=== PATIENT | female | born 1990 | race Hispanic/Latino ===

== ENCOUNTER 2018-07-03 07:43 | Emergency (ER) | payer OTHER ==
[2018-07-03 07:54] VITALS: BMI 18.3
[2018-07-03] MEDS ORDERED: Sodium Chloride 0.9% 1,000 ML IV STA (07:54)
--- NOTE | 2018-07-03 08:00 | ED PDOC ---
HPI: Female Pain Additional Complaint(s): 28 yo female patient with PMH of kidney stone present to the ED c/o R flank pain since last night. Patient states had passed stone last year and symptoms now are pretty similar to previous episode. She states pain in R flank, 5/10, radiated to R groin, have not taking pain meds at this time. Otherwise she denies fever, nausea, vomiting, dysuria, frequency, hematuria, no changes in BM. <Liseth Pierson - Last Filed: 07/03/18 11:48> <Kain Shi - Last Filed: 07/03/18 11:57> Time Seen by Provider: 07/03/18 07:53 Supervising Attending Note - Supervising Attending Note The Documented history was done by the: Physician Abrasive Worker The documented physical exam was done by the: Physician Abrasive Worker The documented procedures were done by the: Physician Abrasive Worker - Attestation: I have personally seen and examined this patient.: Yes I have fully participated in the care of the patient.: Yes I have reviewed all pertinent clinical information, including history, physical exam and plan: Yes - Notes: Notes:: Flank pain. Feels like her kidney stone. <Kain Shi - Last Filed: 07/03/18 11:57> Past Medical History - Medical History PMH: No Chronic Diseases - Surgical History Surgical History: No Surg Hx - Family History Family History: States: No Known Family Hx - Social History Current smoker - smoking cessation education provided: No Ex-Smoker (has not smoked in the last 12 months): No Alcohol: None Drugs: Denies <Liseth Pierson - Last Filed: 07/03/18 11:48> Vital Signs: Last Vital Signs Temp 98.7 F 07/03/18 08:00 Pulse 92 H 07/03/18 08:00 Resp 18 07/03/18 08:00 BP 132/86 07/03/18 08:00 Pulse Ox 100 07/03/18 08:00 <Kain Shi - Last Filed: 07/03/18 11:57> - Home Medications Home Medications: Ambulatory Orders Medication Instructions Recorded Ibuprofen [Motrin] 600 mg PO TID 7 Days tab 07/03/18 - Allergies Allergies/Adverse Reactions: Allergies Allergy/AdvReac Type Severity Reaction Status Date / Time midazolam [From Versed] AdvReac Intermediate COUGH Verified 07/03/18 08:11 Physical Exam - Reviewed Vital Signs Reviewed: Yes - Physical Exam Appears: Positive for: No Acute Distress Head Exam: Positive for: NORMAL INSPECTION Neck: Positive for: Supple Cardiovascular/Chest: Positive for: Regular Rate, Rhythm. Negative for: Tachycardia Respiratory: Positive for: Normal Breath Sounds. Negative for: Rales, Rhonchi, Wheezing Gastrointestinal/Abdominal: Positive for: Bowel Sounds, Soft, Tenderness (R lower quadrant). Negative for: Distended Back: Positive for: R CVA Tenderness. Negative for: L CVA Tenderness Extremity: Negative for: Pedal Edema Neurologic/Psych: Positive for: Alert, food and nutrition supervisor II-XII, Oriented <Liseth Pierson - Last Filed: 07/03/18 11:48> - Physical Exam Cardiovascular/Chest: Positive for: Regular Rate, Rhythm Respiratory: Positive for: Normal Breath Sounds Gastrointestinal/Abdominal: Positive for: Soft, Tenderness <Kain Shi - Last Filed: 07/03/18 11:57> - Laboratory Results Result Diagrams: 07/03/18 08:20 07/03/18 08:20 <Liseth Pierson - Last Filed: 07/03/18 11:48> - Laboratory Results Result Diagrams: 07/03/18 08:20 07/03/18 08:20 - Progress ED Course And Treament: 1157: Stable. AAOx3. Pain free. Tolerated PO. FU with pcp. <Kain Shi - Last Filed: 07/03/18 11:57> Medical Decision Making Medical Decision Makin yo female pt presenting with R flank pain, r/o Kidney stone. - IV fluids - CBC, CMP - UA - Abdominal CT 9:09 Reeval: CBC wnl, no leukocytosis, CMP wnl Patient prefers wait to CT results before take any IV pain meds 1135: CT negative for stones or obstructive uropathy. Patient stable for discharge <Liseth Pierson - Last Filed: 07/03/18 11:48> Disposition - Patient ED Disposition Is Patient to be Admitted: No - Disposition Disposition: Routine/Home Disposition Time: 11:51 <Liseth Pierson - Last Filed: 07/03/18 11:48> <Kain Shi - Last Filed: 07/03/18 11:57> - Clinical Impression Clinical Impression: Mesenteric adenitis - Disposition Referrals: [facility] [place] [Outside] Condition: STABLE Additional Instructions: Return if not better in 3 days. Prescriptions: Ibuprofen [Motrin] 600 mg PO TID 7 Days tab Instructions: Mesenteric Lymphadenitis (DC) Forms: [facility] ([place]), [facility] ED School/Work Excuse
[2018-07-03 08:09] VITALS: RESP 18; O2SAT 100
[2018-07-03 08:46] LABS: BASO % 0.4 % (0.0-2.0); EOS # 0.3 K/uL (0.0-0.7); EOS % 3.8 % (0.0-4.0); HEMOGLOBIN 14.5 g/dL (12.0-16.0); LYMPH # 2.2 K/uL (1.0-4.3); LYMPH % 32.3 % (20.0-40.0); MEAN CELL VOLUME 93.8 fl (81.0-99.0); MEAN CORPUSCULAR HGB CONC 34.2 g/dL (33.0-37.0); MONO # 0.4 K/uL (0.0-0.8); MONO % 6.4 % (0.0-10.0); NEUT # 3.9 K/uL (1.8-7.0); NEUT % 57.1 % (50.0-75.0); NRBC % 0.1 % (0.0-0.0); RBC 4.51 Mil/uL (3.80-5.20); RED CELL DISTRIBUTION WIDTH 11.9 % (11.5-14.5); WHITE BLOOD COUNT 6.8 K/uL (4.8-10.8)
[2018-07-03 08:56] LABS: ALB/GLOB RATIO 1.3 (1.0-2.1); ALBUMIN 5.1 g/dL (3.5-5.0); ALT/SGPT 35 U/L (9-52); AST/SGOT 37 U/L (14-36); BLOOD UREA NITROGEN 8 mg/dl (7-17); CALCIUM 10.1 mg/dL (8.4-10.2); GFR NON-AFRICAN AMERICAN > 60
--- NOTE | 2018-07-03 11:27 | CT ---
Date of service: 07/03/2018 PROCEDURE: CT Abdomen and Pelvis without intravenous contrast HISTORY: R/O stone COMPARISON: Not available TECHNIQUE: Without contrast.. Contrast dose: 0 Radiation dose: Total exam DLP = 346.14 mGy-cm. This CT exam was performed using one or more of the following dose reduction techniques: Automated exposure control, adjustment of the mA and/or kV according to patient size, and/or use of iterative reconstruction technique. FINDINGS: LOWER THORAX: Unremarkable. LIVER: Unremarkable. No gross lesion or ductal dilatation. GALLBLADDER AND BILE DUCTS: Unremarkable. PANCREAS: Unremarkable. No gross lesion or ductal dilatation. SPLEEN: Unremarkable. ADRENALS: Unremarkable. No mass. KIDNEYS AND URETERS: Unremarkable. No hydronephrosis. No solid mass. VASCULATURE: Unremarkable. No aortic aneurysm. No aortic atherosclerotic calcification or mural plaque present. BOWEL: Unremarkable. No obstruction. No gross mural thickening. APPENDIX: Unremarkable. Normal appendix. PERITONEUM: Unremarkable. No free fluid. No free air. LYMPH NODES: No retroperitoneal or pelvic lymphadenopathy. There are innumerable shotty lymph nodes in the small bowel mesentery of uncertain significance. Possible mesenteric adenitis. Correlate clinically. BLADDER: Unremarkable. REPRODUCTIVE: Unremarkable. BONES: no acute fracture. OTHER FINDINGS: None. IMPRESSION: No evidence of urinary calculus or urinary tract obstruction. Innumerable shotty small bowel mesenteric lymph nodes of uncertain significance. Possible mesenteric adenitis. No other significant abnormality.
[2018-07-03 12:38] VITALS: BP 128/80; PULSE 88; TEMP 98.5
== END 2018-07-03 12:00 | disposition home or self-care (01) ==
LOC: H.ER 07:43
DX: I88.0 Nonspecific mesenteric lymphadenitis (principal); Z87.442 Personal history of urinary calculi; Z87.891 Personal history of nicotine dependence
CPT/HCPCS: 74176; 80053; 81025; 85025; 96360; 99283; J7030

== ENCOUNTER 2018-12-15 09:57 | Emergency (ER) | payer OTHER ==
[2018-12-15 10:08] VITALS: BMI 23.8
[2018-12-15] MEDS ORDERED: Sodium Chloride 0.9% 1,000 ML IV STA (10:43)
--- NOTE | 2018-12-15 10:44 | ED PDOC ---
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 Pt states she had an IUD placed at [facility] approximately one month ago stating that "it just wasn't right" and the pain with insertion was severe. She has been having lower abdominal pain since that time. She developed a fever to 101 this morning so became concerned and decided to come be evaluated given concern for IUD misplacement. She has had her menstrual period 3 times since having IUD placed, LMP began 12/14/18. Denies dysuria, urinary frequency, N/V, diarrhea, ear pain, sore throat, nasal congestion. Last took Ibuprofen 400mg at 8am this morning for fever and pain. Past Medical History Reviewed: Historical Data, Nursing Documentation, Vital Signs Vital Signs: Last Vital Signs Temp 98.9 F 12/15/18 10:07 Pulse 95 H 12/15/18 10:07 Resp 18 12/15/18 10:07 BP 112/77 12/15/18 10:07 Pulse Ox 98 12/15/18 10:14 Primary Care Provider: FAMILY PROVIDER,NO - Medical History PMH: Fibromyalgia, Kidney Stones (right kidney) Other PMH: endometriosis - Surgical History Surgical History: Tonsillectomy - Family History Family History: States: Unknown Family Hx - Immunization History Hx Tetanus Toxoid Vaccination: No Hx Influenza Vaccination: Yes Hx Pneumococcal Vaccination: No - Home Medications Home Medications: Ambulatory Orders Medication Instructions Recorded Ibuprofen [Motrin] 600 mg PO TID 7 Days tab 07/03/18 Ibuprofen [Motrin Tab] 600 mg PO Q6 PRN 7 Days tab 12/15/18 Sulfamethoxazole/Trimethoprim 1 tab PO BID 3 Days tab 12/15/18 [Bactrim DS 800 mg-160 mg] - Allergies Allergies/Adverse Reactions: Allergies Allergy/AdvReac Type Severity Reaction Status Date / Time midazolam [From Versed] AdvReac Intermediate COUGH Verified 12/15/18 10:13 Review of Systems Constitutional: Positive for: Fever. Negative for: Chills ENT: Negative for: Ear Pain, Nose Discharge, Throat Pain Respiratory: Negative for: Cough, Shortness of Breath Gastrointestinal: Positive for: Abdominal Pain. Negative for: Nausea, Vomiting, Diarrhea Genitourinary Female: Positive for: Vaginal Bleeding, Pelvic Pain. Negative for: Dysuria, Frequency, Vaginal Discharge Physical Exam - Reviewed Nursing Documentation Reviewed: Yes Vital Signs Reviewed: Yes - Physical Exam Appears: Positive for: Non-toxic ENT: Positive for: Normal ENT Inspection Cardiovascular/Chest: Positive for: Regular Rate, Rhythm Respiratory: Positive for: Normal Breath Sounds Gastrointestinal/Abdominal: Positive for: Tenderness (LLQ and RLQ as well as suprapubic) Pelvic Exam: Negative for: Speculum Exam Normal (exam performed in the presence of RN Arely as job checker. + dark blood in vaginal vault. No IUD string i dentified. ) Neurological/Psych: Positive for: Awake, Alert, Oriented - Laboratory Results Result Diagrams: 12/15/18 10:57 12/15/18 10:57 - ECG O2 Sat by Pulse Oximetry: 98 Medical Decision Making Medical Decision Making: CBC, CMP Transvaginal U/S NS 1L IV x 1 Urine dip Urine dip: LE large, nitrate positive, blood large U/A and urine culture ordered Transvaginal U/S: FINDINGS: UTERUS: Measures 2.9 x 4.4 x 5.9 cm. Normal in size and appearance. No fibroid or other mass lesion seen. ENDOMETRIUM: Measures 5.8 mm in diameter. This is measured in the fundal portion of the endometrium above the tip of the IUD. Within the endometrial canal is a 4 x 7 x 7 mm solid nonvascular structure likely polyp. Trace fluid identified at the tip of the fundal level of the endometrium. Intrauterine contraceptive device (IUD) identified the tip is in the mid body of the endometrium likely low lying. CERVIX: No cervical abnormality identified. RIGHT OVARY: Measures 1.5 x 1.7 x 2.4 cm. No solid mass. Normal flow. LEFT OVARY: Measures 2.6 x 5.3 x 5 cm. Echogenic focus within the left adnexa of uncertain etiology/significance measures 1.8 x 3.9 x 4 cm. This may be portions of a dermoid. Follow-up advisable on the liked of basis. Normal flow. FREE FLUID: Trace free fluid identified in the pelvis/cul de sac. OTHER FINDINGS: None. IMPRESSION: 1. Low lying intrauterine contraceptive device. 2. Likely endometrial polyp. 3. Trace fluid in the endometrial canal. 4. Trace free fluid identified in the pelvis/cul de sac. 5. Echogenic focus in an enlarged left adnexa. Elective follow-up recommended. [employer]er, Dr. Jraa, called and states that pain may likely be due to low lying IUD. Pt informed and asking to have IUD removed. Dr. Jara at bedside. IUD removed. Pt feels significant improvement in abdominal pain. Stable for d/c home. Disposition - Clinical Impression Clinical Impression: UTI (urinary tract infection), Pelvic pain - Patient ED Disposition Is Patient to be Admitted: No Counseled Patient/Family Regarding: Studies Performed, Diagnosis, Need For Followup - Disposition Disposition: Routine/Home Disposition Time: 14:50 Condition: STABLE Additional Instructions: Follow up with your career consultant for follow up of pelvic pain and contraceptive methods. Take Tylenol or Ibuprofen for pelvic discomfort. Take full course of antibiotics as prescribed. Prescriptions: Ibuprofen [Motrin Tab] 600 mg PO Q6 PRN 7 Days tab PRN Reason: Pain, Moderate (4-7) Sulfamethoxazole/Trimethoprim [Bactrim DS 800 mg-160 mg] 1 tab PO BID 3 Days tab Instructions: Urinary Tract Infection, Adult (DC), Chronic Pelvic Pain (DC) Forms: [employer] ([place]i), [facility] ED School/Work Excuse Print Language: TAJIK
[2018-12-15 11:05] LABS: BASO % 0.3 % (0.0-2.0); EOS # 0.1 K/uL (0.0-0.7); EOS % 1.4 % (0.0-4.0); HEMOGLOBIN 13.3 g/dL (12.0-16.0); LYMPH # 0.7 K/uL (1.0-4.3); MEAN CELL VOLUME 91.9 fl (81.0-99.0); MEAN CORPUSCULAR HEMOGLOBIN 32.1 pg (27.0-31.0); MEAN PLATELET VOLUME 8.7 fl (7.2-11.7); MONO # 0.5 K/uL (0.0-0.8); MONO % 9.3 % (0.0-10.0); NEUT # 4.3 K/uL (1.8-7.0); RBC 4.13 Mil/uL (3.80-5.20); WHITE BLOOD COUNT 5.5 K/uL (4.8-10.8)
[2018-12-15 11:13] LABS: ALB/GLOB RATIO 1.5 (1.0-2.1); ALBUMIN 4.6 g/dL (3.5-5.0); ALT/SGPT 76 U/L (9-52); AST/SGOT 35 U/L (14-36); BLOOD UREA NITROGEN 11 mg/dl (7-17); CALCIUM 9.2 mg/dL (8.4-10.2); GFR NON-AFRICAN AMERICAN > 60; LIPASE 58 U/L (23-300)
--- NOTE | 2018-12-15 12:55 | US ---
Date of service: 12/15/2018 HISTORY: lower abd pain x 1 month, fever, +IUD LMP 12/14/2018 COMPARISON: None available. TECHNIQUE: FINDINGS: UTERUS: Measures 2.9 x 4.4 x 5.9 cm. Normal in size and appearance. No fibroid or other mass lesion seen. ENDOMETRIUM: Measures 5.8 mm in diameter. This is measured in the fundal portion of the endometrium above the tip of the IUD. Within the endometrial canal is a 4 x 7 x 7 mm solid nonvascular structure likely polyp. Trace fluid identified at the tip of the fundal level of the endometrium. Intrauterine contraceptive device (IUD) identified the tip is in the mid body of the endometrium likely low lying. CERVIX: No cervical abnormality identified. RIGHT OVARY: Measures 1.5 x 1.7 x 2.4 cm. No solid mass. Normal flow. LEFT OVARY: Measures 2.6 x 5.3 x 5 cm. Echogenic focus within the left adnexa of uncertain etiology/significance measures 1.8 x 3.9 x 4 cm. This may be portions of a dermoid. Follow-up advisable on the liked of basis. Normal flow. FREE FLUID: Trace free fluid identified in the pelvis/cul de sac. OTHER FINDINGS: None. IMPRESSION: 1. Low lying intrauterine contraceptive device. 2. Likely endometrial polyp. 3. Trace fluid in the endometrial canal. 4. Trace free fluid identified in the pelvis/cul de sac. 5. Echogenic focus in an enlarged left adnexa. Elective follow-up recommended.
[2018-12-15 13:26] LABS: SQUAMOUS EPITHIAL 2 /hpf (0-5); URINE AMORPHOUS SEDIMENT OCC /ul (<OCC); URINE BACTERIA FEW (<OCC); URINE BILIRUBIN NEGATIVE (NEGATIVE); URINE BLOOD MODERATE (NEGATIVE); URINE CLARITY CLOUDY (Clear); URINE COLOR RED (YELLOW); URINE GLUCOSE (UA) NEG (NEGATIVE); URINE LEUKOCYTE ESTERASE SMALL Leu/uL (Negative); URINE PROTEIN 100 mg/dL (NEGATIVE); URINE UROBILINOGEN 0.2-1.0 mg/dL (0.2-1.0)
[2018-12-15 14:55] VITALS: BP 112/66; PULSE 66; RESP 14; TEMP 98
--- NOTE | 2018-12-16 11:51 | CP.PCM.CON ---
History of Present Illness - History of Present Illness History of Present Illness: 28-year-old with 1 month history of cramping pelvic pain. Patient reports discomfort started immediately after insertion of ParaGard IUD. Patient also reports irregular bleeding since insertion of ParaGard IUD. Patient requesting removal of ParaGard IUD. Patient also had urinalysis which was suggestive of urinary tract infection today. Discussed with patient the procedure of removal and IUD. Patient consented for procedure. Past Patient History - Past Social History Smoking Status: Never Smoked - CARDIAC Other/Comment: Mitral valve prolapse. tricuspid defect - PULMONARY Hx Respiratory Disorders: No - NEUROLOGICAL Hx Neurological Disorder: No - HEENT Hx HEENT Problems: No - RENAL Hx Kidney Stones: Yes (right kidney) - ENDOCRINE/METABOLIC Hx Endocrine Disorders: No - HEMATOLOGICAL/ONCOLOGICAL Hx Blood Disorders: No - INTEGUMENTARY Hx Dermatological Problems: No - GASTROINTESTINAL Hx Gastrointestinal Disorders: No - GENITOURINARY/GYNECOLOGICAL Hx Genitourinary Disorders: No - PSYCHIATRIC Hx Psychophysiologic Disorder: No Hx Substance Use: No - SURGICAL HISTORY Hx Tonsillectomy: Yes - ANESTHESIA Hx Anesthesia: Yes Hx Anesthesia Reactions: No Meds Home Medications: Home Medication List Medication Instructions Recorded Confirmed Type Ibuprofen [Motrin Tab] 600 mg PO Q6 PRN 7 Days tab 12/15/18 Rx Sulfamethoxazole/Trimethoprim 1 tab PO BID 3 Days tab 12/15/18 Rx [Bactrim DS 800 mg-160 mg] Allergies/Adverse Reactions: Allergies Allergy/AdvReac Type Severity Reaction Status Date / Time midazolam [From Versed] AdvReac Intermediate COUGH Verified 12/15/18 10:13 Physical Exam - Constitutional Appears: Well, No Acute Distress - Head Exam Head Exam: ATRAUMATIC - Eye Exam Eye Exam: Normal appearance, PERRL - ENT Exam ENT Exam: Mucous Membranes Moist - Respiratory Exam Respiratory Exam: Clear to Auscultation Bilateral, NORMAL BREATHING PATTERN - Cardiovascular Exam Cardiovascular Exam: REGULAR RHYTHM - GI/Abdominal Exam GI & Abdominal Exam: Soft. absent: Distended, Tenderness - Exam Additional comments: Cervix visualized with sterile speculum. IUD string visualized. Strings grasped with ring forceps. IUD removed with gentle traction. After removal, cervix found to be hemostatic. Patient tolerated procedure well. Results - Vital Signs Recent Vital Signs: Last Vital Signs Temp 98.0 F 12/15/18 14:55 Pulse 66 12/15/18 14:55 Resp 14 12/15/18 14:55 BP 112/66 12/15/18 14:55 Pulse Ox 100 12/15/18 14:55 - Labs Result Diagrams: 12/15/18 10:57 12/15/18 10:57 Labs: Laboratory Results - last 24 hr 12/15/18 13:12 Urine Color Red Urine Clarity Cloudy Urine pH 6.0 Ur Specific [place] 1.006 Urine Protein 100 Urine Glucose (UA) Neg Urine Ketones Negative Urine Blood Moderate Urine Nitrate Negative Urine Bilirubin Negative Urine Urobilinogen 0.2-1.0 Ur Leukocyte Esterase Small Urine RBC (Auto) 919 H Urine Microscopic WBC 25 H Ur Squamous Epith Cells 2 Amorphous Sediment Occ H Urine Bacteria Few H - Imaging and Cardiology US - abdomen Status: Report reviewed by me Assessment & Plan - Assessment and Plan (Free Text) Assessment: Pelvic pain, misplaced IUD, urinary tract infection Plan: IUD removed, as above. Patient tolerated procedure well. P.o. antibiotics for UTI. Patient will follow-up with CIRCULATION CLERK this week. Discussed plan with patient and all patient questions answered.
[2018-12-16 21:34] VITALS: O2SAT 98
== END 2018-12-15 14:50 | disposition home or self-care (01) ==
LOC: H.ER 09:57
DX: R10.9 Unspecified abdominal pain (principal); N39.0 Urinary tract infection, site not specified; M79.7 Fibromyalgia; T83.32XA Displacement of intrauterine contraceptive device, initial encounter
CPT/HCPCS: 76830; 80053; 81003; 81025; 83690; 85025; 87086; 99284; J7030